=== PATIENT | female | born 1960 | race Caucasian/White ===

== ENCOUNTER → 2017-01-29 | Outpatient (CLI) | payer OTHER ==
[~2017-01-29] MED LIST: ESTRADIOL PO; ESTROGEN PATCH TP; MONT10TA9 PO; PRILOSEC PO; PROG100C2 PO; PROGEST; [UNRECOGNIZED DRUG - OTHER]; [UNRECOGNIZED DRUG - OTHER] PO
[2017-01-29 16:05] LABS: HEMOGLOBIN 13.4 g/dL (11.7-16.4)
[2017-01-29 16:17] LABS: BLOOD UREA NITROGEN 26 mg/dL (7-18)
== END | disposition home or self-care (01) ==
LOC: STAR 14:58
PROVIDERS: ATTEND Orthopaedic Surgery Orthopaedic Surgery of the Spine
DX: Z01.818 Encounter for other preprocedural examination (principal); M47.896 Other spondylosis, lumbar region
CPT/HCPCS: 36415; 71020; 80048; 81003; 85025; 85610; 85651; 85730; 93005

== ENCOUNTER → 2017-03-25 | Outpatient (CLI) | payer OTHER | END | disposition home or self-care (01) | LOC: CFH 09:32 | PROVIDERS: ATTEND Obstetrics & Gynecology Gynecology | DX: Z12.31 Encounter for screening mammogram for malignant neoplasm of breast (principal) | CPT/HCPCS: G0202 ==

== ENCOUNTER → 2017-06-22 | Outpatient (CLI) | payer OTHER ==
[~2017-06-22] MED LIST changes: +5-HY50CA2 PO; +ASCO10004 PO; +BIOT25005 PO; +CALC1TAB4 PO; +DIPH25CA61 PO; +FAMO40TA61 PO; +GABA300C10 PO; +KRIL1CAP9 PO; +LACT1CAP37 PO; +RANI150T8 PO; +UBID30CA9 PO; +VITA1TAB3 PO
[2017-06-22 11:13] LABS: HEMATOCRIT 42.4 % (34.6-47.8); HEMOGLOBIN 14.5 g/dL (11.7-16.4); WHITE BLOOD COUNT 5.8 x10^3/uL (3.4-10)
[2017-06-22 11:23] LABS: BLOOD UREA NITROGEN 19 mg/dL (7-18)
== END | disposition home or self-care (01) ==
LOC: STAR 10:02
PROVIDERS: ATTEND Neurological Surgery
DX: Z01.818 Encounter for other preprocedural examination (principal); M51.36 Other intervertebral disc degeneration, lumbar region; R79.1 Abnormal coagulation profile
CPT/HCPCS: 36415; 80048; 81003; 85025; 85610; 85730; 93005

== ENCOUNTER 2017-07-01 10:05 | Inpatient (IN) | payer OTHER ==
[~2017-07-01] VITALS: Ht 162.6 cm; Wt 85.1 kg
[~2017-07-01 10:05] MED LIST changes: +BACITRACIN 50,000 UNIT ONE; +BUPIVACAINE/PF 0.25% ONE; +BUPIVACAINE/PF 0.5% ONE; +EPINEPHRINE 1 MG/ML, 1ML ONE; +THROMBIN 5,000 UNIT VIAL TP ONE
[2017-07-01 11:57] VITALS: BP 113/73
[2017-07-01] MEDS ORDERED: LACTATED RINGERS 1,000 ML IV SCH (12:01)
[2017-07-01] MEDS ORDERED: MIDAZOLAM 1 MG/ML, 2ML ONE (13:02)
[2017-07-01] MEDS ORDERED: FENTANYL PF 100 MCG/2ML ONE ×3 (13:02→14:44)
[2017-07-01] MEDS ORDERED: SCOPOLAMINE PATCH, 1.5MG PATCH.TD72 TD ONE ×2 (13:37)
[2017-07-01] MEDS ORDERED: DEXAMETHASONE 4 MG/ML, 1ML ONE (13:44)
[2017-07-01] MEDS ORDERED: PROPOFOL 10 MG/ML, 50ML ONE (13:44)
[2017-07-01] MEDS ORDERED: SUCCINYLCHOLINE 20 MG/ML, 10ML ONE (13:44)
[2017-07-01] MEDS ORDERED: ONDANSETRON 2MG/ML, 2ML ONE (13:44)
[2017-07-01] MEDS ORDERED: CEFAZOLIN 1,000 MG ONE (13:44)
[2017-07-01] MEDS ORDERED: PROPOFOL 10 MG/ML, 20ML ONE (13:44)
[2017-07-01] MEDS ORDERED: OXYcodone 5 MG/5 ML ORAL.SOL UDC PO PRN (14:30)
[2017-07-01] MEDS ORDERED: hydrALAzine 20 MG/ML, 1ML IV PRN (14:30)
[2017-07-01] MEDS ORDERED: PROMETHAZINE 25 MG/ML, 1ML IV PRN (14:30)
[2017-07-01] MEDS ORDERED: HYDROcodone/APAP 7.5-325MG/15ML UDC PO PRN (14:30)
[2017-07-01] MEDS ORDERED: MIDAZOLAM 1 MG/ML, 2ML IV PRN (14:30)
[2017-07-01] MEDS ORDERED: ACETAMINOPHEN 325 MG TABLET PO PRN (14:30)
[2017-07-01] MEDS ORDERED: FENTANYL PF 100 MCG/2ML IV PRN (14:30)
[2017-07-01] MEDS ORDERED: MEPERIDINE/PF 25MG/0.5ML IVPush PRN (14:30)
[2017-07-01] MEDS ORDERED: ONDANSETRON 2MG/ML, 2ML IVPush PRN ×2 (14:30→16:00)
[2017-07-01] MEDS ORDERED: EPHEDRINE 50 MG/ML, 1ML IVPush PRN (14:30)
[2017-07-01] MEDS ORDERED: LABETALOL 5MG/ML, 20ML IV PRN (14:30)
[2017-07-01] MEDS ORDERED: FENTANYL PF 100 MCG/2ML EPIDPUSH ONE (14:57)
[2017-07-01] MEDS ORDERED: HYDROmorphone 1 MG/ML, 1ML ONE (15:50)
[2017-07-01] MEDS ORDERED: OXYcodone 5 MG/5 ML ORAL.SOL UDC ONE (15:50)
[2017-07-01] MEDS: HYDROmorphone 1 MG/ML, 1ML IV PRN ×2 (15:57→16:32)
[2017-07-01] MEDS ORDERED: PHARMACY MAY ADJ FOR RENAL FX MC PRN (16:00)
[2017-07-01] MEDS ORDERED: SENNA/DOCUSATE TABLET PO PRN (16:00)
[2017-07-01] MEDS ORDERED: MORPHINE SULFATE 4 MG/ML, 1ML IVPush PRN (16:00)
[2017-07-01] MEDS ORDERED: METHOCARBAMOL 750 MG TABLET PO PRN (16:00)
[2017-07-01] MEDS ORDERED: BISACODYL 10 MG SUPP PR PRN (16:00)
[2017-07-01] MEDS ORDERED: PROMETHAZINE 25 MG/ML, 1ML IM PRN (16:00)
[2017-07-01] MEDS ORDERED: OXYcodone/APAP 5/325MG TABLET PO PRN (16:00)
[2017-07-01] MEDS: D5%-0.9% NACL+KCL 20MEQ 1,000 ML IV SCH (18:00)
[2017-07-01 19:35] VITALS: BP 109/72
[2017-07-01] MEDS: SODIUM CHLORIDE FLUSH 10ML SYR IVF SCH (21:33)
[2017-07-01] MEDS: FAMOTIDINE 40 MG TABLET PO SCH (21:33)
[2017-07-01] MEDS: CEFAZOLIN PMX 1GM/50ML 50 ML IVPB SCH (21:33)
[2017-07-01] MEDS: HYDROcodone/APAP 5/325 TABLET PO PRN ×2 (23:07→23:15)
[2017-07-01 23:55] VITALS: BP 91/58
[2017-07-02] MEDS: D5%-0.9% NACL+KCL 20MEQ 1,000 ML IV SCH (00:54)
[2017-07-02 03:40] VITALS: BP 102/64
[2017-07-02] MEDS: HYDROcodone/APAP 10/325 MG TABLET PO PRN ×2 (04:14→09:40)
[2017-07-02] MEDS: CEFAZOLIN PMX 1GM/50ML 50 ML IVPB SCH (05:53)
[2017-07-02] MEDS ORDERED: [UNRECOGNIZED DRUG - REMARK] HOMEMEDPO SCH (09:00)
[2017-07-02] MEDS ORDERED: ASCORBIC ACID 500 MG TABLET PO SCH (09:00)
[2017-07-02] MEDS ORDERED: DIPHENHYDRAMINE 25 MG CAPSULE PO SCH (09:00)
[2017-07-02] MEDS ORDERED: HYDROXYTRYPTOPHAN PO SCH (09:00)
[2017-07-02] MEDS ORDERED: GABAPENTIN 300 MG CAPSULE PO SCH (09:00)
[2017-07-02] MEDS ORDERED: BIOTIN 5000 MG HOMEMEDPO SCH (09:00)
[2017-07-02] MEDS ORDERED: [UNRECOGNIZED DRUG - OTHER] HOMEMEDPO SCH (09:00)
[2017-07-02] MEDS ORDERED: TEMPLATE NON-FORMULARY MED. (Ranitidine Hcl** (Zantac**) 150 MG) HOMEMEDPO SCH (09:00)
[2017-07-02 09:10] VITALS: BP 96/64
[2017-07-02] MEDS: FAMOTIDINE 40 MG TABLET PO SCH (09:40)
[2017-07-02] MEDS: SODIUM CHLORIDE FLUSH 10ML SYR IVF SCH (09:42)
[2017-07-02] MEDS ORDERED: HYDR-3307 PO (10:32)
[2017-07-02] MEDS ORDERED: METH750T87 PO (10:33)
[2017-07-02] MEDS ORDERED: CEPH-368 PO (10:33)
== END 2017-07-02 11:00 | disposition home or self-care (01) | DRG 516 ==
LOC: ORIP 11:08 → 4NOR 17:00 → DCLOUNGE 07-02 10:40
PROVIDERS: ADMIT Neurological Surgery; ATTEND Neurological Surgery
PROC: 4A11X4G Monitoring of Peripheral Nervous Electrical Activity, Intraoperative, External Approach (ICD-10-PCS; 2017-07-01)
PROC: 01NB0ZZ Release Lumbar Nerve, Open Approach (ICD-10-PCS; principal; 2017-07-01 15:00)
DX: M48.06 Spinal stenosis, lumbar region (principal); E44.1 Mild protein-calorie malnutrition; K21.9 Gastro-esophageal reflux disease without esophagitis; M54.16 Radiculopathy, lumbar region; M51.26 Other intervertebral disc displacement, lumbar region
CPT/HCPCS: 72100; J0171; J0690; J1100; J1170; J2250; J2405; J2704; J3010; J3490; J0330; J3480; J7120; Q0163

== ENCOUNTER 2020-04-12 13:37 | Outpatient (CLI) | payer BC ==
[~2020-04-12 13:37] MED LIST changes: -BACITRACIN 50,000 UNIT ONE; -BUPIVACAINE/PF 0.25% ONE; -BUPIVACAINE/PF 0.5% ONE; +CEPH-368 PO; -EPINEPHRINE 1 MG/ML, 1ML ONE; +HYDR-3246 PO; +METH750T87 PO; +MONT10TA11 PO; -MONT10TA9 PO; +PROG100C10 PO; -PROG100C2 PO; +RANI-467 PO; -RANI150T8 PO; -THROMBIN 5,000 UNIT VIAL TP ONE
[2020-04-12] MEDS ORDERED: OMEP40CA42 PO (14:27)
== END 2020-04-12 23:59 | disposition home or self-care (01) ==
LOC: STAR 13:37
PROVIDERS: ATTEND Orthopaedic Surgery
DX: Z02.9 Encounter for administrative examinations, unspecified (principal)

== ENCOUNTER 2020-04-19 05:13 | Day surgery (SDC) | payer BC ==
[~2020-04-19] VITALS: Ht 162.6 cm; Wt 83.0 kg
[~2020-04-19 05:13] MED LIST changes: +OMEP40CA42 PO
[2020-04-19] MEDS ORDERED: CHLORHEXIDINE 15 ML UDC MM STA (06:06)
[2020-04-19] MEDS ORDERED: LACTATED RINGERS 1,000 ML IV SCH (06:06)
[2020-04-19 06:08] VITALS: BP 120/81
[2020-04-19] MEDS ORDERED: FENTANYL PF 100 MCG/2ML ONE (06:31)
[2020-04-19] MEDS ORDERED: MIDAZOLAM 1 MG/ML, 2ML ONE (06:31)
[2020-04-19] MEDS ORDERED: LIDOCAINE 1%, 20ML ONE (06:47)
[2020-04-19] MEDS ORDERED: BUPIVACAINE/PF 0.5% ONE ×2 (06:47→08:37)
[2020-04-19] MEDS ORDERED: PROMETHAZINE 25 MG/ML, 1ML IVPush PRN (07:00)
[2020-04-19] MEDS ORDERED: ALBUTEROL SULFATE 2.5 MG/3 ML NPPB PRN (07:00)
[2020-04-19] MEDS ORDERED: LABETALOL 5MG/ML, 20ML IV PRN (07:00)
[2020-04-19] MEDS ORDERED: OXYcodone 5 MG/5 ML ORAL.SOL UDC PO PRN (07:00)
[2020-04-19] MEDS ORDERED: hydrALAzine 20 MG/ML, 1ML IV PRN (07:00)
[2020-04-19] MEDS ORDERED: ACETAMINOPHEN 325 MG TABLET PO PRN (07:00)
[2020-04-19] MEDS ORDERED: LORazepam 2 MG/ML, 1ML IVPush PRN (07:00)
[2020-04-19] MEDS ORDERED: HYDROmorphone 1 MG/ML, 1ML INJ IVPush PRN (07:00)
[2020-04-19] MEDS ORDERED: MEPERIDINE/PF 25MG/0.5ML IVPush PRN (07:00)
[2020-04-19] MEDS ORDERED: FENTANYL PF 100 MCG/2ML IV PRN (07:00)
[2020-04-19] MEDS ORDERED: ROCURONIUM 10 MG/ML,10ML ONE (07:10)
[2020-04-19] MEDS ORDERED: SUCCINYLCHOLINE 20 MG/ML, 10ML ONE (07:10)
[2020-04-19] MEDS ORDERED: LIDOCAINE-MPF 2% ,5ML ONE (08:37)
[2020-04-19] MEDS ORDERED: DEXAMETHASONE 4 MG/ML, 1ML ONE (08:37)
[2020-04-19] MEDS ORDERED: CEFAZOLIN 1,000 MG ONE (08:37)
[2020-04-19] MEDS ORDERED: PROPOFOL 10 MG/ML, 20ML ONE (08:37)
[2020-04-19] MEDS ORDERED: ONDANSETRON 2MG/ML, 2ML ONE (08:37)
[2020-04-19] MEDS ORDERED: HYDROmorphone 1 MG/ML, 1ML INJ ONE (10:07)
== END 2020-04-19 11:30 | disposition home or self-care (01) ==
LOC: OUT 05:13
PROVIDERS: ATTEND Orthopaedic Surgery
DX: M24.672 Ankylosis, left ankle (principal); Z11.59 Encounter for screening for other viral diseases; M21.6X2 Other acquired deformities of left foot; M65.872 Other synovitis and tenosynovitis, left ankle and foot; S93.492A Sprain of other ligament of left ankle, initial encounter; K21.9 Gastro-esophageal reflux disease without esophagitis; E66.9 Obesity, unspecified; F12.90 Cannabis use, unspecified, uncomplicated; Z91.010 Allergy to peanuts; Z68.31 Body mass index [BMI] 31.0-31.9, adult; X58.XXXA Exposure to other specified factors, initial encounter; Y93.89 Activity, other specified; Y92.89 Other specified places as the place of occurrence of the external cause; Y99.8 Other external cause status; Z79.899 Other long term (current) drug therapy; Z98.890 Other specified postprocedural states; Z72.89 Other problems related to lifestyle
CPT/HCPCS: 27691; 27695; 29891; 29898; 36415; 64447; 87635; C1713; J0330; J0690; J1100; J2250; J2405; J2704; J3010; J7120

== ENCOUNTER 2020-04-21 17:02 | Emergency (ER) | payer BC ==
[~2020-04-21] VITALS: Ht 162.6 cm; Wt 82.0 kg
[2020-04-21 17:11] VITALS: BP 114/72
[2020-04-21] MEDS ORDERED: ONDANSETRON 2MG/ML, 2ML ONE (17:26)
[2020-04-21] MEDS ORDERED: ONDANSETRON 2MG/ML, 2ML IVPush ONE (17:30)
[2020-04-21] MEDS ORDERED: SODIUM CHLORIDE 0.9% 1,000ML IVBOLUS ONE (17:30)
--- NOTE | 2020-04-21 17:48 | NUR ---
BREAK RN: DR BOOKER AT BEDSIDE TO RE-EVAL PT.
[2020-04-21 17:49] LABS: BASOPHILS # (AUTO) 0.03 x10^3/uL (0-0.1); BASOPHILS % (AUTO) 0 % (0-1); EOSINOPHILS % (AUTO) 0 % (1-7); LYMPHOCYTES # (AUTO) 0.59 x10^3/uL (1-3.4); LYMPHOCYTES % (AUTO) 5 % (22-44); MD NO; MEAN CORPUSCULAR HGB CONC 33.8 g/dL (32.4-35.8); MEAN CORPUSCULAR VOLUME 88.7 fL (80-100); MONOCYTES # (AUTO) 0.25 x10^3/uL (0.2-0.8); MONOCYTES % (AUTO) 2 % (2-9); NEUTROPHILS # (AUTO) 11.03 x10^3/uL (1.8-6.8); NEUTROPHILS % (AUTO) 93 % (42-75); PLATELET COUNT 195 x10^3/uL (130-400); RED BLOOD COUNT 4.47 x10^6/uL (3.82-5.3); RED CELL DISTRIBUTION WIDTH 13.3 % (9.6-15.2)
[2020-04-21 17:57] LABS: ALANINE AMINOTRANSFERASE 56 U/L (12-78); ALBUMIN 3.1 g/dL (3.4-5.0); ANION GAP 4 mmol/L (5-15); CALCIUM 7.9 mg/dL (8.5-10.1); CHLORIDE 106 mmol/L (98-107); CREATININE 0.95 mg/dL (0.55-1.02)
[2020-04-21 17:59] LABS: ALKALINE PHOSPHATASE 75 U/L (45-117); BILIRUBIN,TOTAL 0.5 mg/dL (0.2-1.0); TOTAL PROTEIN 6.2 g/dL (6.4-8.2)
[2020-04-21] MEDS ORDERED: MORPHINE SULFATE 4 MG/ML, 1ML IVPush PRN (18:00)
[2020-04-21] MEDS ORDERED: MORPHINE SULFATE 4 MG/ML, 1ML ONE (18:24)
--- NOTE | 2020-04-21 18:30 | NUR ---
MEDS ADMIN PER MAR. PO FLUIDS GIVEN TO PT FOR PO CHALLENGE.
== END 2020-04-21 19:30 ==
LOC: ED 19:24
DX: K29.00 Acute gastritis without bleeding (principal); R11.2 Nausea with vomiting, unspecified; E86.0 Dehydration; R94.31 Abnormal electrocardiogram [ECG] [EKG]
CPT/HCPCS: 36415; 71045; 80053; 83690; 85025; 93005; 96361; 96374; 96375; 99285; J2270; J2405; J7030